=== PATIENT | male | born 1975 | race Two or more races ===

== ENCOUNTER 2024-09-20 16:23 | Outpatient (CLI) | payer BC, SELFPAY ==
[2024-09-20 17:03] LABS: Basophils # 0.2 K/mm3 (0-0.2); Basophils % 1.5 % (0.1-2.0); Eosinophils # 0.2 K/mm3 (0.0-0.4); Eosinophils % 2.1 % (0.1-12.0); Hematocrit 44.6 % (42.0-52.0); Hemoglobin 15.1 g/dL (14.1-18.0); Lymphocytes # 3.4 K/mm3 (0.7-4.5); Lymphocytes % 30.5 % (10-50); Mean Corpuscular Hemoglobin 30.1 pg (27.0-31.2); Mean Corpuscular Volume 88.6 fl (80-94); Mean Platelet Volume 7.5 fl (7.4-10.4); Monocytes % 8.8 % (1.7-9.3); Neutrophils # 6.3 K/mm3 (1.8-7.8); Neutrophils % 57.2 % (37.0-80.0); Platelet Count 280 K/mm3 (142-424); Red Blood Count 5.03 M/mm3 (4.60-6.20)
[2024-09-20 17:25] LABS: Alanine Aminotransferase 12 U/L (12-78); Albumin Level 3.7 g/dl (3.5-5.0); Albumin/Globulin Ratio 1.7 (1.1-1.8); Alkaline Phosphatase 100 U/L (38-126); Anion Gap 14.7 mEq/L (5-15); Aspartate Amino Transferase 16 U/L (17-59); Bilirubin,Total 0.6 mg/dl (0.2-1.3); Blood Urea Nitrogen 6 mg/dl (9-20); Calcium 8.9 mg/dl (8.4-10.2); Carbon Dioxide 29 mmol/L (22.0-30.0); Chloride 100 mmol/L (98-107); Estimated Glomerular Filt Rate 89 ml/min (>60); GFR (African American) 108 ML/MIN (>60); Globulin 2.2 g/dL (1.3-3.2); Glucose 100 mg/dl (74-100); Potassium 3.7 mmoL/L (3.5-5.1); Sodium 140 mmol/L (136-145); Total Protein,Serum 5.9 g/dl (6.3-8.2)
== END 2024-09-20 23:59 | disposition home or self-care (01) ==
LOC: LAB 16:25
PROVIDERS: PCP Internal Medicine; Visit Provider Internal Medicine Gastroenterology
DX: K74.69 Other cirrhosis of liver (principal); K75.3 Granulomatous hepatitis, not elsewhere classified; K75.4 Autoimmune hepatitis
CPT/HCPCS: 36415; 80053; 85025

== ENCOUNTER 2025-07-27 06:14 | Day surgery (SDC) | payer BC, SELFPAY ==
[2025-07-21 09:58] VITALS: BMI 33.8
--- NOTE | 2025-07-26 06:49 | EXP.HP ---
History of Present Illness *Admission Date: 07/27/25 *History of present illness: Mr. Samuel is a 50-year-old gentleman who is here for follow-up screening/surveillance colonoscopy. He does have a personal history of adenomatous colon polyps and his colonoscopy in January 2022 revealed 9 polyps (tubular adenomas x 7/hyperplastic polyps x 2) which were removed. 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 The examination is deemed medically necessary for screening/surveillance colonoscopy. The patient has been seen, interviewed and examined prior to the procedure by both myself and the anesthesia provider. [facility] Disclaimer: The information contained in this section may have been updated after the patient was seen, as this information can be updated by other users. Medical History Hyperlipidemia Hypertension History of COVID-19 Chronic cough Migraine Cirrhosis Surgical History Hx of cardiac cath History of neck surgery History of cholecystectomy Family History Other Colon cancer Heart attack Stroke Social History (Updated 07/27/25 @ 07:21 by Amy Up CRNA) Smoking Status: Current every day smoker alcohol intake: never substance use type: unknown current occupational status: employed Travel in the last 8 weeks?: None Have you lived/traveled outside [place] in past 30 days?: No Contact w/someone who lives/traveled outside US past 30 days?: No Exposure to someone with infectious disease in past 14 days?: No Do you have a fever (greater than 100.4 F or 38 C)?: No Have you tested positive for COVID-19?: No Exposed to someone with COVID-19 in past 14 days?: No Do you have a sore throat?: No Do you have a cough?: No Do you have any weakness?: No Are you experiencing any nausea/vomitting?: No Do you have any diarrhea?: No Are you experiencing any unusual bleeding?: No Do you have any muscle aches/pain?: No Do you have any abdominal pain?: No Are you experiencing loss of taste or smell?: No Review of Systems Review of Systems Review of systems (narrative): Negative *Cardiovascular Comments: Negative *Gastrointestinal Comments: Negative *Genitourinary Comments: Negative *Musculoskeletal Comments: Negative *Neurologic Comments: Negative Meds Home Medications and Allergies Home Medications ?Medication ?Instructions ?Recorded ?Confirmed ?Type cholecalciferol (vitamin D3) 25 25 mcg PO DAILY 09/16/24 07/21/25 History mcg (1,000 unit) tablet dexlansoprazole 60 mg 60 mg PO DAILY 09/16/24 07/21/25 History capsule,biphase delayed release (Dexilant) famotidine 40 mg tablet 10 mg PO BID 09/16/24 07/21/25 History nebivolol 5 mg tablet (Bystolic) 5 mg PO DAILY 09/16/24 07/21/25 History aspirin 81 mg tablet 81 mg PO DAILY 09/20/24 07/21/25 History budesonide 9 mg capsule,extended 9 mg PO DAILY #30 caps 09/20/24 07/21/25 Rx release mecobalamin (vitamin B12) 2,500 2,500 mcg PO DAILY 09/20/24 07/21/25 History mcg chewable tablet ursodiol 300 mg capsule 300 mg PO BID #60 caps 09/20/24 07/21/25 Rx spironolactone 25 mg tablet 25 mg PO DAILY #30 tabs 12/21/24 07/21/25 Rx sodium,potassium,mag sulfates 17.5 See Rx Instructions PO .COMPLEX 07/14/25 07/21/25 Rx gram-3.13 gram-1.6 gram oral soln #354 mL (Suprep Bowel Prep Kit) New Prescriptions to Start Prescriptions: Allergies Allergy/AdvReac Type Severity Reaction Status Date / Time cefuroxime (From Ceftin) Allergy Severe Anaphylaxis Verified 07/27/25 06:56 morphine Allergy Severe Chest Pain Verified 07/27/25 06:56 Corticosteroids Allergy Unknown Verified 07/27/25 07:22 (Glucocorticoids) allergy reaction latex Allergy Blister / Verified 07/27/25 06:56 HIVES esomeprazole (From Nexium) AdvReac Hives Verified 07/27/25 06:56 lansoprazole (From Prevacid) AdvReac Hives Verified 07/27/25 06:56 omeprazole (From Prilosec) AdvReac Hives Verified 07/27/25 06:56 Exam *Routine HEENT Exam Head: Present normocephalic Eye: Present EOMI and PERRL ENT: Present mucous membranes moist *Routine Neck Exam Neck: Present supple *Routine Respiratory Exam Respiratory: Present CTA bilaterally *Routine Cardiovascular Exam Cardiovascular: Present RRR *Routine Abdominal Exam Abdominal: Present soft and normoactive bowel sounds; Absent tenderness *Routine Rectal Exam Rectal:: deferred *Routine Genitalia Exam Genitalia:: deferred *Routine Extremities Exam Extremities: Absent cyanosis, clubbing or edema *Routine Skin Exam Skin: Present warm; Absent rash *Routine Neurological Exam Neurological: Present alert and oriented X3 Assessment and Plan *Assessment and plan (1) Personal history of adenomatous and serrated colon polyps: Status: Acute Category: Medical Code(s): Z86.0101 - Personal history of adenomatous and serrated colon polyps (2) Screening for colon cancer: Status: Acute Category: Medical Code(s): Z12.11 - Encounter for screening for malignant neoplasm of colon Plan A/P: 1. Personal history of adenomatous colon polyps is the preprocedural diagnosis. The patient will be anesthetized/sedated using MAC sedation. The patient has been seen and examined. Cardiac and lung assessment prior to the examination is stable. Proceed with planned screening colonoscopy.
[2025-07-27 06:50] VITALS: BP 111/65; PULSE 54; RESP 18; TEMP 36.3; O2SAT 99; BMI 33.8
[2025-07-27] MEDS: LACTATED RINGERS 1000ML 1,000 ML 50 ML IV (07:02)
--- NOTE | 2025-07-27 07:19 | EXP.ANES.CKL ---
[facility] Disclaimer: The information contained in this section may have been updated after the patient was seen, as this information can be updated by other users. Medical History Hyperlipidemia Hypertension History of COVID-19 Chronic cough Migraine Cirrhosis Surgical History Hx of cardiac cath History of neck surgery History of cholecystectomy Family History Other Colon cancer Heart attack Stroke Social History Smoking Status: Current every day smoker alcohol intake: never substance use type: unknown current occupational status: employed Travel in the last 8 weeks?: None [facility] Anesthesia Checklist Patient Identification Patient Identification: Arm Band and Verbal (Name & ) Structural Data Admitted From: Home Planned Operative Procedure/s: colonscopy Consent for Planned Operative Procedure(s) Verified: Yes Verified Documents: Surgical Consent and History and Physical NPO Status Verified Time NPO: 00:00 Additional verifications Anesthesia Reactions: No Previous Colonoscopy: Yes Airway Assessment Mallampati Score:: Class II Dentition: Good Dentition Neurological Assessment Level of Consciousness: Awake, Alert and Appropriate Hx Seizures: No Anesthesia Plan Anesthesia Risk discussed: Yes Anesthesia Plan: Verified ASA Class: II Anesthesia Type: MAC
--- NOTE | 2025-07-27 07:43 | HMH.PROCNOTE ---
[facility] Procedure Note Date: 07/27/25 Time: 08:03 Procedure Note:: Colonoscopy Procedure Report: Colonoscopy with cold snare polypectomy Endoscopist: Zoran Segovia II, MD Referring physician: Bravo Mason MD, [id number] [facility], [place] [address] Date of Procedure: July 27, 2025 Equipment: Olympus [id number] adult colonoscope Sedation: MAC sedation Indication: Mr. Samuel is a 50-year-old gentleman who is here for follow-up screening/surveillance colonoscopy. He does have a personal history of adenomatous colon polyps and his colonoscopy in January 2022 revealed 9 polyps (tubular adenomas x 7/hyperplastic polyps x 2) which were removed. The patient reports no abdominal pain, weight loss, change in his bowel habits or rectal bleeding. He reports no family history of colon cancer. 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 He also has a history of noncardiac chest pain and has had resolution of the chest pain. The examination is deemed medically necessary for screening/surveillance colonoscopy. Procedure: Prior to the procedure, a history and physical exam was performed, and patient's medications and allergies were reviewed. The risks, benefits and alternatives of the sedation and procedure were discussed with the patient. All questions were answered and informed consent was obtained. The patient was brought to the procedure room. Patient identification and proposed procedure were verified by the physician and the nurse. The patient was placed in a left lateral decubitus position and the scope was passed under direct vision. Throughout the procedure, the patient's blood pressure, pulse, and oxygen saturations were monitored continuously. The colonoscopy was accomplished without difficulty. The patient tolerated the procedure well. Findings: On digital rectal examination there was normal to increased rectal tone. There were no external hemorrhoids. The prostate was 2+, mildly firm but symmetric without nodules. The colonoscope was introduced through the anal canal to the rectum and advanced to the cecum. The ileocecal valve and appendiceal orifice were identified. The scope was advanced a short distance into the ileum which appeared grossly normal. The scope was then withdrawn into the colon. There were 4 polyps (ascending x 1 (6 mm), transverse x 1 (3 mm) and sigmoid x 2 (3 and 5 mm)). These were all removed via cold snare polypectomy. The cecum, ascending, transverse, descending, sigmoid and rectum were grossly normal. There were no mucosal abnormalities identified. Upon retroflexion within the rectum there were grade 1-2 internal hemorrhoids. The preparation was good throughout with Novi Preparation Score of 8 out of 9. The cecal time was 12 minutes. Impression: 1. Diminutive colonic polyps x 4 Plan: I will follow-up the polyp histology and recommend repeat screening/surveillance colonoscopy again in 5 years.
[2025-07-27 08:04] VITALS: BP 94/56; PULSE 62; RESP 18; TEMP 36.3; O2SAT 97
[2025-07-27 08:14] VITALS: BP 97/63; PULSE 60; RESP 18; TEMP 36.3; O2SAT 98
[2025-07-27 08:24] VITALS: BP 102/71; PULSE 64; RESP 18; TEMP 36.3; O2SAT 98
[2025-07-27 08:34] VITALS: BP 124/74; PULSE 68; RESP 18; TEMP 36.3; O2SAT 97
== END 2025-07-27 08:50 | disposition home or self-care (01) ==
PROVIDERS: Visit Provider Internal Medicine Gastroenterology
PROC: 0DJD8ZZ Inspection of Lower Intestinal Tract, Via Natural or Artificial Opening Endoscopic (ICD-10-PCS; CPT 45378; principal; 2025-07-27 08:00)
DX: Z12.11 Encounter for screening for malignant neoplasm of colon (principal); G47.30 Sleep apnea, unspecified; I10 Essential (primary) hypertension; E11.9 Type 2 diabetes mellitus without complications; Z98.1 Arthrodesis status; Z79.85 Long-term (current) use of injectable non-insulin antidiabetic drugs; Z79.899 Other long term (current) drug therapy
CPT/HCPCS: 45378; J2003; J2704; J7120